=== PATIENT | female | born 1965 | race Caucasian/White ===

== ENCOUNTER 2021-12-17 01:24 | Day surgery (SDC) | payer BC, SELFPAY ==
[2021-12-09 13:21] VITALS: BMI 25.8
--- NOTE | 2021-12-16 17:21 | WPDGICN ---
Assessment and Plan Assessment and plan (1) GERD (gastroesophageal reflux disease): Code(s): K21.9 - Gastro-esophageal reflux disease without esophagitis Status: Acute Assessment and Plan: EGD with possible biopsy or dilatation or cautery. (2) Colon cancer screening: Code(s): Z12.11 - Encounter for screening for malignant neoplasm of colon Status: Acute Assessment and Plan: Colonoscopy with possible biopsy or polypectomy or cautery or injection of substances. GI Consult Note Consult date/time: 12/16/21 17:21 HPI: Zaynab Reddy is a 56 year old female With long history of reflux-type symptoms for which she has been on omeprazole, but only occasionally when needed. she often feels that perform or tight band type sensation across her chest. Taking baking soda will relieve it also allow her to burp. She has not had endoscopy to investigate this or to rule out Barretts mucosa. she is also due for colon cancer screening. She has loose stools lately, often immediately after eating . She has trouble having a great deal of gas. She passes a fair bit of gas and also belches frequently Review of Systems Review of Systems: All systems reviewed & are unremarkable except as noted in HPI and below PMFSH Past Medical History Medical History Denis's esophagus HTN (hypertension) Paroxysmal A-fib Surgical History Surgical History H/O colonoscopy History of esophagogastroduodenoscopy (EGD) Family History Family History Mother Hypertension Social History Social History Smoking status: Never smoker Alcohol intake: current Alcohol use details: Social drinking Substance use: never Substance use type: does not use Living arrangements: with family Spiritual care concerns: No Meds Home Medications and Allergies Home Medications Medication Instructions Recorded Confirmed Type albuterol sulfate [ProAir HFA] 90 mcg INHALATION PRN 12/09/21 12/09/21 History alprazolam [Xanax] 0.25 mg PO PRN 12/09/21 12/09/21 History diltiazem HCl [Cardizem CD] 300 mg PO HS 12/09/21 12/09/21 History fluticasone furoate-vilanterol See Rx Instructions .ROUTE .COMPLEX 12/09/21 12/09/21 History [Breo Ellipta] Allergies Allergy/AdvReac Type Severity Reaction Status Date / Time No Known Drug Allergies Allergy Unknown Other Verified 12/17/21 08:13 UNKNOWN PAIN MEDICATION Allergy Mild Other Uncoded 12/17/21 08:13 Exam Resp: Auscultation: clear to auscultation bilaterally Cardio: Rate: regular rate Rhythm: regular rhythm GI: GI Palp: Yes Soft to palpation and No Tenderness to palpation present (GI)
[2021-12-17 08:16] VITALS: BP 105/78; PULSE 82; RESP 20; TEMP 36.3; O2SAT 96; BMI 26.2
[2021-12-17] MEDS: LACTATED RINGERS 1,000 ML 150 ML IV CONT (08:28)
--- NOTE | 2021-12-17 09:02 | P.PNAN_ITS ---
Anes - Initial Pre Proc Eval Procedure: Operation Date: 12/17/21 09:30 Proposed Procedures p Esophagogastroduodenoscopy & Screening Colonoscopy - Neville Solorzano MD Date/Time: 12/17/21 09:02 Surgeon: Neville Solorzano MD Pre Op Diagnosis: GERD, neoplasm screening Patient Data Age: 56 Gender: F Height: 1.63 m Weight: 69.3 kg Last Vital Signs Temp 36.3 C L 12/17/21 08:16 Pulse 82 12/17/21 08:16 Resp 20 12/17/21 08:16 BP 105/78 12/17/21 08:16 Pulse Ox 96 12/17/21 08:16 Allergies Allergy/AdvReac Type Severity Reaction Status Date / Time No Known Drug Allergies Allergy Unknown Other Verified 12/17/21 08:13 UNKNOWN PAIN MEDICATION Allergy Mild Other Uncoded 12/17/21 08:13 Home Medications Medication Instructions Recorded Confirmed Type albuterol sulfate [ProAir HFA] 90 mcg INHALATION PRN 12/09/21 12/09/21 History alprazolam [Xanax] 0.25 mg PO PRN 12/09/21 12/09/21 History diltiazem HCl [Cardizem CD] 300 mg PO HS 12/09/21 12/09/21 History fluticasone furoate-vilanterol See Rx Instructions .ROUTE .COMPLEX 12/09/21 12/09/21 History [Breo Ellipta] Patient hx anesthesia problems: none Family hx anesthesia problems: none Results Review: All pre-operative results and documents have been reviewed as part of the pre-operative evaluation. [facility] Past Medical History Medical History (Updated 12/17/21 @ 09:05 by Arnaldo Armijo MD) Denis's esophagus HTN (hypertension) Paroxysmal A-fib Surgical History Surgical History (Updated 12/17/21 @ 09:05 by Arnaldo Armijo MD) H/O colonoscopy History of esophagogastroduodenoscopy (EGD) Family History Family History (Updated 06/28/19 @ 15:32 by DOCTOR UNKNOWN) Mother Hypertension Social History Social History Smoking status: Never smoker Alcohol intake: current Alcohol use details: Social drinking Substance use: never Substance use type: does not use Living arrangements: with family Spiritual care concerns: No Anes - Eval Final PreProcedure Day of Procedure 12/17/21 09:02 Patient weight: overweight Heart: regular rate and rhythm Lungs: clear to auscultation Airway: Mallampati scale class 1 Neurological: alert and oriented Last oral intake: >/= 8 hours ASA classification: III Emergent: no Anesthetic plan: proceed Anesthesia type and monitoring: general GIVS and standard monitoring Results Review: All pre-operative results and documents have been reviewed as part of the pre-operative evaluation. Informed Consent: The patient's anesthetic plan and its attendant risks and benefits were discussed with the patient/family/POA. Questions were solicited and answers provided to the satisfaction of the patient/family/POA.
--- NOTE | 2021-12-17 09:38 | SUR.OPER ---
EGD ENDED 931 COLONOSCOPY STARTED 937
[2021-12-17] MEDS: SIMETHICONE ORAL SUSPENSION 20 MG/0.3 ML 30 ML BOTTLE 0.6 ML IRRIGATION (09:43)
[2021-12-17 09:47] VITALS: BP 97/53; PULSE 74; RESP 18; O2SAT 97
[2021-12-17 09:57] VITALS: BP 114/66; PULSE 82; RESP 20; O2SAT 99
[2021-12-17 10:07] VITALS: BP 127/74; PULSE 72; RESP 20; O2SAT 99
== END 2021-12-17 10:26 | disposition home or self-care (01) ==
PROVIDERS: PCP Internal Medicine; Visit Provider Internal Medicine Gastroenterology
PROC: 0DJ08ZZ Inspection of Upper Intestinal Tract, Via Natural or Artificial Opening Endoscopic (ICD-10-PCS; CPT 43235; principal; 2021-12-17 09:30)
DX: Z12.11 Encounter for screening for malignant neoplasm of colon (principal); K57.30 Diverticulosis of large intestine without perforation or abscess without bleeding; K21.00 Gastro-esophageal reflux disease with esophagitis, without bleeding; K22.70 Barrett's esophagus without dysplasia; I48.0 Paroxysmal atrial fibrillation; I10 Essential (primary) hypertension; Z79.51 Long term (current) use of inhaled steroids
CPT/HCPCS: 43239; 45380; 88305; J2704; J7120

== ENCOUNTER 2023-09-15 18:01 | Emergency (ER) | payer BC, SELFPAY ==
[2023-09-15 18:04] VITALS: BP 132/77; PULSE 113; RESP 16; TEMP 36.6; O2SAT 97
== END 2023-09-15 19:41 | disposition left against medical advice (07) ==
LOC: ANHED 19:35
PROVIDERS: PCP Internal Medicine
DX: R11.2 Nausea with vomiting, unspecified (principal)
CPT/HCPCS: 99199

== ENCOUNTER 2025-08-28 00:51 | Day surgery (SDC) | payer BC, SELFPAY ==
[2025-08-27 13:38] VITALS: BMI 26.4
--- OUTSIDE RECORDS SUMMARY | 2025-08-28 00:53 | XMS_ITS | Clinical Summary ---
Author Organization [facility] Address [address] [place] [address] Care Team Providers Care Operations Technician Name Role Phone Jean-Claude Saha MD Primary Care Provider [phone] Source Comments [facility],non-owned Affiliates and Associated Physician Practices is amultiple site organization consisting of ambulatory clinics and hospital sitesin [place], [place], [place] and [place]. This disclosure is being madepursuant to the Care Everywhere program and may not contain all information available regarding this patient. Last updated 18.[facility] Allergies No known active allergies Medications * Be aware that medications may not be up to date on this document. Alwaysverify current medications with the patient. fluticasone-mame meterol (ADVAIR) 100-50 MCG/DOSE inhaler Inhale 1 Puff by mouth 2 times daily. Active Cholecalciferol (VITAMIN D PO) Activ e ALPRAZolam (XANAX) 0.25 MG tablet TAKE ONE TABLET 3 TIMES DAILY NEEDED FOR ANXIETY 01/22/2020 Active QVAR REDIHALER 80 MCG/ACT inhaler 05/09/2020 Active triamcinolone acetonide (KENALOG) 0.1 % creamIndication s:Lichen sclerosus et atrophicus of the vulva Apply to affected area 2 times daily 80 g 3 05/22/2020 Active Active Problems Problem Noted Date Diagnosed Date Refused influenza vaccine 09/05/2021 Osteopenia Lichen sclerosus et atrophicus of the vulva Family History Medical History Relation Name Comments Breast Cancer after age 50 o r unknown Mother lumpectomy only no r adiation or chemo either Relation Name Status Comments Mother Social History Tobacco Use Types Packs/Day Years Used Date Smoking Tobacco: Never Smokeless Tobacco: Never Alcohol Use Standard Drinks/Week Comments Yes 0 (1 standard drink = 0.6 oz pur e alcohol) social PHQ-2 Answer Date Recorded PHQ2 TOTAL SCORE 0 09/05/2021 Comments No Sex and Gender Information Value Date Recorded Sex Assigned at Not on file Legal Sex Female 6:24 AM MINE SURVEYOR Gender Identity Not on file Sexual Orientation Not on file Last Filed Vital Signs Vital Sign Reading Time Taken Comments Blood Pressure 138/88 09/05/2021 10:46 AM MINE SURVEYOR Pulse 72 05/15/2009 4:35 AM CDT Temperature 36.9 C (98.5 F) 05/15/2009 4:35 AM CDT Respiratory Rate 14 05/15/2009 4:35 AM CDT Oxygen Saturation 97% 05/15/2009 4:35 AM CDT Inhaled Oxygen Concentration - - Weight 70.8 kg (156 lb) 09/05/2021 10:46 AM MINE SURVEYOR Height 162.6 cm (5' 4) 09/05/2021 10:46 AM MINE SURVEYOR Body Mass Index 26.78 09/05/2021 10:46 AM MINE SURVEYOR Plan of Treatment Upcoming Encounters Date Type Department Care Team (Late st Contact Info) Description 09/14/2025 8:00 AM MINE SURVEYOR Appointment [facility] Breast [address] [address] Jean-Claude Saha MD [address] [place] [phone] 09/14/2025 8:20 AM MINE SURVEYOR Appointment [facility] Care [address] [place] [id number] Jean-Claude Saha MD [address] [place] [phone] Health Maintenance Due Date Last Done Comments COLOGUARD (AGES 45-75) - COLON CA SCREENING 1966 COLON MONITORING 1966 COLONOSCOPY - COLON CA SCREENING 1966 CT COLONOGRAPHY - COLON CA SCREENING 1966 Colorectal Cancer Screening 1966 FIT - COLON CA SCREENING 1966 FLEX SIG - COLON CA SCREENING 1966 LIPID TESTING 1966 HIV SCREENING 1981 HEPATITIS C SCREENING 03/18/1984 DTAP/TDAP/TD VACCINES (1 - Tdap) 1985 HEPATITIS B VACCINE (1 of 3 - 19+ 3-dose series) 1985 PNEUMOCOCCAL VACCINE 50+ (1 of 1 - PCV) 2016 ZOSTER VACCINE (1 of 2) 2016 SCREENING FOR DIABETES 10/13/2018 MAMMOGRAM 08/09/2024 08/09/2023 PAP SMEAR 09/05/2024 09/05/2021, 04/28, 10/13/2018, Additional history exists DEPRESSION SCREENING 09/27/2024 COVID-19 VACCINE ( season) 2025 01/16/2021, 12/26/2020 INFLUENZA VACCINE (#1) 2025 Cervical Cancer Screening 09/05/2026 PAP with HPV 09/05/2026 09/05/2021, 04/28, 10/13/2018, Additional history exists HIB VACCINE Aged Out No longer eligi ble based on patient's age to complete this topic HPV VACCINE Aged Out No longer eligi ble based on patient's age to complete this topic MENINGOCOCCAL (Group B) VACCINE SHARED DECISION-MAKING Aged Out No longer eligible based on patient's age to complete this topic MENINGOCOCCAL GROUPS A/C/Y/W VACCINE Aged Out No longer eligible based on patient's age to complete this topic Procedures Procedure Name Priority Date/Time Associated Diagnosis Comments MAMMO BILAT SCREENING W AGUILA Routine 08/09/2023 9:41 AM MINE SURVEYOR Encounter for mammogram to establish baseline mammogram PAP IG LB+HPV APTIMA Routine 09/05/2021 11:16 AM MINE SURVEYOR Well woman exam from Last 3 Months or Most Recently Relevant to Health Maintenance Results * MAMMO BILAT SCREENING W AGUILA (08/09/2023 9:41 AM MINE SURVEYOR) Anatomical Region Laterality Modality Breast Bilateral Mammography 08/16/2023 2:12 PM MINE SURVEYOR Impressions 08/16/2023 2:14 PM MINE SURVEYOR : Annual screening mammography is recommended. OVERALL FINAL ASSESSMENT: BI-RADS Category 1: Negative. > Interpreting Provider: Beryl Quinn MD on 08/16/2023 2:14 PM Narrative 08/16/2023 2:14 PM MINE SURVEYOR EXAMINATION: BILATERAL DIGITAL SCREENING MAMMOGRAM AND BILATERAL BREAST TOMOSYNTHESIS HISTORY: Screening. COMPARISON: 10/28/2016, 08/13/2015 (outside facility mammogram examinations from [facility]) TECHNIQUE: BILATERAL digital breast tomosynthesis (DBT) and synthetic 2D digital mammogram images were obtained (bilateral craniocaudal and mediolateral oblique projections) including computer aided detection (CAD.) BREAST PARENCHYMAL COMPOSITION: Category B: There are scattered areas of fibroglandular density. MAMMOGRAM FINDINGS: There is no suspicious finding in either breast. Overall, there has been no significant interval change. us Jean-Claude Saha MD MAMMO ORDERABLES Final Resu lt * PAP IG LB+HPV APTIMA (09/05/2021 11:16 AM MINE SURVEYOR) Diagnosis [facility] ACCOUNT BILL Comment: NEGATIVE FOR INTRAEPITHELIAL LESION OR MALIGNANCY. CELLULAR CHANGES ASSOCIATED WITH ATROPHY ARE PRESENT. Specimen Adequacy [facility] ACCOUNT BILL Comment: Satisfactory for evaluation. Endocervical component may not be distinguished in cases of atrophy. Clinician Provided ICD10 [facility] ACCOUNT BILL Comment: Z01.419 Z12.11 N90.4 N94.10 Performed by [facility] ACCOUNT BILL Comment:Richard Villa [employer] hnologist (ASCP) Comment . [facility] ACCOUNT BILL Note [facility] ACCOUNT BILL Comment: The Pap smear is a screening test designed to aid in the detection of premalignant and malignant conditions of the uterine cervix. It is not a diagnostic procedure and should not be used as the sole means of detecting cervical cancer. Both false-positive and false-negative reports do occur. . IGLBP CPT Code Automation [facility] ACCOUNT BILL Comment: This liquid based ThinPrep(R) pap test was screened with the use of an image guided system. Human papillomavirus Aptima Negative Negative [facility] ACCOUNT BILL Comment: This nucleic acid amplification test detects fourteen high-risk HPV types (16,18,31,33,35,39,45,51,52,56,58,59,66,68) without differentiation. Pathology/Cytolog y ENTIRE VAGINA / Unknown 09/05/2021 11:16 AM MINE SURVEYOR 09/08/2021 Narrative [facility] ACCOUNT BILL - 09/10/2021 11:10 AM MINE SURVEYOR No. of containers..01 ThinPrep Vial Resulting Agency Comment Lab Testing performed at: [facility] [id number] [place] Roby Ahn MD LAB - PATHOLOGY/CYTOLOGY OR DERABLES Final Result [facility] ACCOUNT BILL [id number] [place] [phone] from Last 3 Months or Most Recently Relevant to Health Maintenance Advance Directives * Full Code (Latest Code Status on File) Date Activated Date Inactivated Comments 05/14/2009 10:27 AM 05/16/2009 12:36 AM Care Teams Operations Technician Relationship Specialty Start Date End Date Jean-Claude Saha MD [address] [place] [address] [address] [place] [phone] PCP - General Internal Medicine 08/17/16
[2025-08-28 10:28] VITALS: BP 166/58; PULSE 73; RESP 18; TEMP 36.2; O2SAT 99; BMI 27.0
[2025-08-28] MEDS: LACTATED RINGERS 1,000 ML 150 ML IV CONT (10:50)
--- NOTE | 2025-08-28 11:08 | WPDANESEPPF ---
Anes - Initial Pre Proc Eval Procedure: Operation Date: 08/28/25 11:45 Proposed Procedures p Esophagogastroduodenoscopy - Juan Shaver MD Date/Time: 08/28/25 11:08 Surgeon: Juan Shaver MD Pre Op Diagnosis: Denis's esophagus without dysplasia Patient Data Age: 60 Gender: F Height: 1.63 m Weight: 71.4 kg Last Vital Signs Temp 36.2 C L 08/28/25 10:28 Pulse 73 08/28/25 10:28 Resp 18 08/28/25 10:28 BP 166/58 H 08/28/25 10:28 Pulse Ox 99 08/28/25 10:28 O2 Del Method Room Air 08/28/25 10:28 Allergies Allergy/AdvReac Type Severity Reaction Status Date / Time meperidine (From Demerol) Allergy Nausea and Verified 08/28/25 10:34 Vomiting Home Medications ?Medication ?Instructions ?Recorded ?Confirmed ?Type albuterol sulfate 90 mcg/actuation 90 mcg inhalation PRN 12/09/21 08/28/25 History aerosol inhaler (ProAir HFA) alprazolam 0.25 mg tablet (Xanax) 0.25 mg PO PRN 12/09/21 08/27/25 History diltiazem HCl 300 mg 300 mg PO HS 12/09/21 08/28/25 History capsule,extended release 24 hr (Cardizem CD) fluticasone furoate 100 See Rx Instructions .Route .COMPLEX 12/09/21 08/28/25 History mcg-vilanterol 25 mcg/dose inhalation powder (Breo Ellipta) pantoprazole 40 mg tablet,delayed 40 mg PO QAM 4 weeks #90 tabs 12/19/21 08/27/25 Rx release Held on 08/27/25. Instructions: Patient no longer taking cetirizine 10 mg tablet (24Hour 10 mg PO DAILY 08/27/25 08/28/25 History Allergy) Patient hx anesthesia problems: post op nausea/vomiting Family hx anesthesia problems: none Results Review: All pre-operative results and documents have been reviewed as part of the pre-operative evaluation. [facility] Past Medical History Medical History Paroxysmal A-fib Denis's esophagus HTN (hypertension) Surgical History Surgical History History of esophagogastroduodenoscopy (EGD) H/O colonoscopy Family History Family History Mother Hypertension Social History Social History Smoking status: Never smoker Alcohol intake: never Alcohol use details: Social drinking Substance use: never Substance use type: does not use Living arrangements: with family Spiritual care concerns: No Anes - Eval Final PreProcedure Day of Procedure 08/28/25 11:08 Patient weight: overweight Heart: regular rate and rhythm Lungs: decreased breath sounds Airway: Mallampati scale class 1 Neurological: alert and oriented Last oral intake: >/= 8 hours ASA classification: III Emergent: no Anesthetic plan: proceed Anesthesia type and monitoring: general GIVS and standard monitoring Results Review: All pre-operative results and documents have been reviewed as part of the pre-operative evaluation. Informed Consent: The patient's anesthetic plan and its attendant risks and benefits were discussed with the patient/family/POA. Questions were solicited and answers provided to the satisfaction of the patient/family/POA.
--- NOTE | 2025-08-28 11:16 | P.HP_ITS ---
History of Present Illness History of Present Illness Consent: Risks, benefits, and alternatives have been discussed and questions answered. Patient agrees to proceed with procedure. Chief complaint: Sanderson's esophagus without dysplasia Narrative: Zaynab Reddy is a 60 year old female with sanderson's 3 years ago, currently not taking ppi. Review of Systems Review of Systems: All systems reviewed & are unremarkable except as noted in HPI and below PMFSH Past Medical History Medical History (Updated 08/28/25 @ 11:17 by Juan Shaver MD) Paroxysmal A-fib Sanderson's esophagus HTN (hypertension) Surgical History Surgical History History of esophagogastroduodenoscopy (EGD) H/O colonoscopy Family History Family History Mother Hypertension Social History Social History Smoking status: Never smoker Alcohol intake: never Alcohol use details: Social drinking Substance use: never Substance use type: does not use Living arrangements: with family Spiritual care concerns: No Meds Home Medications and Allergies Home Medications ?Medication ?Instructions ?Recorded ?Confirmed ?Type albuterol sulfate 90 mcg/actuation 90 mcg inhalation P RN 12/09/21 08/28/25 History aerosol inhaler (ProAir HFA) alprazolam 0.25 mg tablet (Xanax) 0.25 mg PO PRN 12/0908/27/25 History diltiazem HCl 300 mg 300 mg PO HS 12/09/21 History capsule,extended release 24 hr (Cardizem CD) fluticasone furoate 100 See Rx Instructions .Route . COMPLEX 12/09/21 08/28/25 History mcg-vilanterol 25 mcg/dose inhalation powder (Breo Ellipta) pantoprazole 40 mg tablet,delayed 40 mg PO QAM 4 weeks #90 tabs 12/19/21 08/27/25 Rx release Held on 08/27/25. Instructions: Patient no longer taking cetirizine 10 mg tablet (24Hour 10 mg PO DAILY 5 08/28/25 History Allergy) Allergies Allergy/AdvReac Type Severity Reaction Status Date / Time [facility] Allergy Nausea and Verified 08/28/25 10:34 Vomiting Vital Signs Vital Signs - 24 hr 08/28/25 10:28 Temperature 97.2 F L Pulse Rate 73 Respiratory Rate 18 Blood Pressure 166/58 H Pulse Oximetry 99 Oxygen Delivery Room Air Exam Const: General: comfortable and no acute distress HENMT: Face/Nose/Sinus: Normal nares present Eyes: General: appearance normal, both eyes and all related structures Resp: Auscultation: clear to auscultation bilaterally Cardio: Rate: regular rate Rhythm: regular rhythm GI: Inspection: non-distended GI Palp: Yes Soft to palpation Skin: General skin exam: normal color Extrem: General: normal to inspection Psych: Mental Status: mental status grossly normal Assessment and Plan Assessment and plan (1) Sanderson's esophagus: Code(s): K22.70 - Sanderson's esophagus without dysplasia Status: Acute Assessment and Plan: egd with bx
--- NOTE | 2025-08-28 11:23 | S_PTH ---
PATIENT: Zaynab Reddy LOC: [facility]#:[id number] AGE/SX: 60/F ROOM: RE08/28/[address]: Juan Shaver MD : 1965 BED: DIS: 08/28/2025 SPEC #: [id number] RECD: 08/28/25 11:30 STATUS: KESHAWN REPamela #: [id number] DONTE: 08/28/25 11:[address]: Juan Shaver DEPT: [facility] Surgical RECD BY: Paddy Osorio ENTERED: 08/28/25 11:31 SP TYPE: Surgical OTHR DR: Jean-Claude Saha, Tissues: A - Esophageal Biopsy Procedures: Hematoxylin and Eosin Stain Gross and Microscopic Level 4
[2025-08-28 11:27] VITALS: BP 109/53; PULSE 76; RESP 25; O2SAT 98
[2025-08-28 11:37] VITALS: BP 113/61; PULSE 77; RESP 19; O2SAT 97
[2025-08-28 11:47] VITALS: BP 123/68; PULSE 84; RESP 14; O2SAT 100
== END 2025-08-28 11:52 | disposition home or self-care (01) ==
PROVIDERS: PCP Internal Medicine; Referring Provider Internal Medicine; Visit Provider Internal Medicine Gastroenterology
PROC: 0DJ08ZZ Inspection of Upper Intestinal Tract, Via Natural or Artificial Opening Endoscopic (ICD-10-PCS; CPT 43239; principal; 2025-08-28 11:45)
DX: K21.00 Gastro-esophageal reflux disease with esophagitis, without bleeding (principal)
CPT/HCPCS: 43239; 88305; J2003; J2704; J7120